=== PATIENT | female | born 1955 | race Asian ===

== ENCOUNTER 2021-03-27 21:40 | Emergency (ER) | payer OTHER ==
[~2021-03-27] VITALS: Ht 165.1 cm; Wt 119.3 kg
[2021-03-27 22:15] LABS: PLATELET COUNT 192 K/uL (152-353)
[2021-03-27 22:26] LABS: POTASSIUM 3.7 mmol/L (3.6-5.2)
[2021-03-27 22:55] VITALS: BP 153/76; TEMP 98.7
[2021-03-28] MEDS ORDERED: AMIODARONE HYD200 MG PO (00:55)
[2021-03-28] MEDS ORDERED: ELIQUIS5 MG PO (00:56)
[2021-03-28] MEDS ORDERED: LIPITOR10 MG PO (00:57)
[2021-03-28] MEDS ORDERED: HUMALOG INJ (00:59)
[2021-03-28] MEDS ORDERED: BASAGLAR K100 UNIT/M SC (01:00)
[2021-03-28] MEDS ORDERED: LUMIGAN0.01 % OPTH (01:01)
[2021-03-28] MEDS ORDERED: METO2.5T3 PO (01:03)
[2021-03-28] MEDS ORDERED: METOPROLOL ER PO (01:04)
[2021-03-28] MEDS ORDERED: QUET25TA2 PO (01:05)
[2021-03-28] MEDS ORDERED: MIDO10TAB PO (01:05)
[2021-03-28] MEDS ORDERED: SPIRONOLACT25 MG PO (01:06)
[2021-03-28] MEDS ORDERED: TORSEMIDE20 MG PO (01:07)
== END 2021-03-27 22:55 | disposition still patient (30) ==
LOC: ED 21:40
PROVIDERS: Emergency Medicine Emergency Medical Services
DX: Z00.8 Encounter for other general examination (principal); N39.0 Urinary tract infection, site not specified; R45.1 Restlessness and agitation
CPT/HCPCS: 36415; 80053; 81000; 85027; 87635; 93005; 99283; U0003